=== PATIENT | male | born 1995 | race Caucasian/White ===

== ENCOUNTER 2023-11-07 06:30 | Outpatient (CLI) | payer MEDICAID ==
[2023-11-07] MEDS ORDERED: LIDOcaine 1%/PF 5ML 10 MG/ML VIAL ONE (06:32)
[2023-11-07] MEDS ORDERED: GADOTERATE MEGLUMINE 7.5 MMOL/15 ML VIAL IV ONE (06:33)
[2023-11-07] MEDS ORDERED: LIDOcaine 1% 30ml preserv. free vial ONE (06:33)
[2023-11-07] MEDS ORDERED: iohexol 300 MG/1 ML 50ml polymer ONE (06:33)
== END 2023-11-07 23:59 | disposition home or self-care (01) ==
LOC: RAD 06:30 → EDSTATUS 07:30 → RAD 23:59
PROVIDERS: ATTEND Pediatrics Sports Medicine
DX: M25.851 Other specified joint disorders, right hip (principal)
CPT/HCPCS: 27093; 73722; 77002; A9575; J3490; Q9967; 73525